=== PATIENT | female | born 1980 | race Caucasian/White ===

== ENCOUNTER 2019-12-21 05:15 | Inpatient (IN) | payer MEDICAID, OTHER ==
[~2019-12-21] VITALS: Ht 154.9 cm; Wt 99.3 kg
[2019-12-21 05:20] VITALS: BP 154/77
--- NOTE | 2019-12-21 05:20 | NUR ---
PT AMBULATED TO BED #6
--- NOTE | 2019-12-21 05:25 | NUR ---
PT 39 Y/O FEMALE BIB SELF FOR C/O UMBILICAL AND RLQ, LLQ, PAIN 9/10 X 2 DAYS. PT AAO X4. ABD IS ROUND, SOFT, ANDD TENDER TO TOUCH. PT STATES SHE HAS HX OF HERNIA AND HAS HAD X 2 OPPERATIONS FOR IT IN THE PAST. PT ALSO HAS HX OF GALLBLADDER REMOVAL X 8 YEARS AGO. PT HAS C/O N/V X 2 DAYS. PT STATES SHE HAS BEEN UNABLE TO SLEEP OR EAT SOLID FOODS X 2 DAYS. PT RESPIRATIONS ARE EVEN AND UNLABORED. SKIN IS WARM AND DRY TO TOUCH. AFEBRILE. PT AT BEDSIDE. BED LOCKED AND IN LOWEST POSITION. MEDHX: HERNIA ALLERGIES: NKA
--- NOTE | 2019-12-21 05:30 | NUR ---
AT [facility].
[2019-12-21] MEDS ORDERED: NACL 0.9% 1,000 ML IV SCH ×2 (05:45→08:27)
[2019-12-21] MEDS ORDERED: MORPHINE SULFATE 4 MG/ML SYR IVP ONE (05:45)
[2019-12-21] MEDS ORDERED: ONDANSETRON 4 MG/2 ML VIAL IVP ONE (05:45)
--- NOTE | 2019-12-21 05:50 | NUR ---
IV PLACED IN R AC 20G. IV SITE IS PATENT. NO SWELLING OR C/O PAIN AT SITE. LABS COLLECTED.
--- NOTE | 2019-12-21 05:51 | NUR ---
IVF OF NS 0.9% 1 L BOLUS RUNNING CONTINOUSLY. IV SITE PATENT. MOPHINE 4MG, ZOFRAN 4 MG, GIVEN FOR 9/10 ABD PAIN AND NAUSEA.
--- NOTE | 2019-12-21 06:00 | NUR ---
CONSENT SIGNED AND GIVEN FOR CT W/ CONTRAST.
[2019-12-21 06:17] LABS: APPEARANCE,URINE CLEAR (CLEAR); BILIRUBIN,URINE NEGATIVE (NEGATIVE); BLOOD, URINE NEGATIVE (NEGATIVE); COLOR,URINE YELLOW (YELLOW); LEUKOCYTE ESTERASE ,URINE NEGATIVE (NEGATIVE); NITRITE, URINE NEGATIVE (NEGATIVE); UGLUCOSE NEGATIVE (NEGATIVE)
[2019-12-21 06:22] LABS: BASOPHILS # (AUTO) 0.1 K/uL (0.00-0.22); BASOPHILS % (AUTO) 0.4 % (0.0-2.0); EOSINOPHILS % (AUTO) 0.1 % (0.0-4.0); HEMATOCRIT 32.6 % (36-48); HEMOGLOBIN 9.9 g/dL (12.0-16.0); LYMPHOCYTES # (AUTO) 1.5 K/uL (2.5-16.5); MEAN CORPUSCULAR HEMOGLOBIN 17 pg (27-31); MEAN CORPUSCULAR HGB CONC 30 g/dL (33-37); MEAN CORPUSCULAR VOLUME 56.9 fL (80-94); MONOCYTES # (AUTO) 1.9 K/uL (0.8-1.0); MONOCYTES % (AUTO) 7.8 % (1.7-9.3); NEUTROPHILS # (AUTO) 21.3 K/uL (1.8-7.7); NEUTROPHILS % (AUTO) 85.7 % (42.2-75.2); PLATELET COUNT (AUTO) 373 K/uL (140-450); RED BLOOD CELL COUNT(AUTO) 5.73 MIL/uL (4.20-5.40)
--- NOTE | 2019-12-21 06:30 | NUR ---
PT RESTING IN BED EYES OPEN. RESPIRATIONS ARE EVEN AND UNLABORED. PT STATES, "MY NAUSEA IS GONE AND THE PAIN IS 4/10. I FEEL SO MUCH BETTER."
[2019-12-21 06:35] LABS: ALBUMIN 3.8 g/dL (3.4-5.0); CARBON DIOXIDE 23.6 mmol/L (21-32); POTASSIUM 3.6 mmol/L (3.5-5.1); TOTAL BILIRUBIN 0.5 mg/dL (0.0-1.0)
[2019-12-21 06:51] LABS: WHITE BLOOD COUNT (AUTO) 24.9 K/uL (4.8-10.8)
--- NOTE | 2019-12-21 06:58 | NUR ---
PT TAKEN TO CT VIA W/C.
--- NOTE | 2019-12-21 07:09 | NUR ---
REPORT GIVEN TO WAYNE LORA. CONTINUATION OF CARE.
--- NOTE | 2019-12-21 07:11 | NUR ---
PT RETURNED FROM CT VIA WC, STEADY GAIT TO MIQUEL
[2019-12-21] MEDS ORDERED: LORazepam 2 MG/ML VIAL IM/IVP PRN (08:30)
[2019-12-21] MEDS ORDERED: HYDROcodone/APAP 5/325 MG 1 TAB TAB PO PRN (08:30)
[2019-12-21] MEDS ORDERED: DOCUSATE SODIUM 100 MG GELCAP PO PRN (08:30)
[2019-12-21] MEDS ORDERED: ONDANSETRON 4 MG/2 ML VIAL IM/IVP PRN (08:30)
[2019-12-21] MEDS ORDERED: ACETAMINOPHEN 325 MG TAB PO PRN (08:30)
[2019-12-21] MEDS ORDERED: ZOLPIDEM 5 MG TAB PO PRN (08:30)
[2019-12-21] MEDS: LACTOBACILLUS RHAMNOSUS GG 1 EACH CAP PO SCH (09:00)
--- NOTE | 2019-12-21 09:01 | NUR ---
patient states she does not take any routine medications
[2019-12-21 09:25] VITALS: BP 140/72
--- NOTE | 2019-12-21 09:25 | NUR ---
RECEIVED REPORT FROM ER. PATIENT ABLE TO AMBULATE TO [facility] BED WITH STEADY GAIT. PATIENT HAS NAUSEA AND VOMITING. ABD PAIN WITHIN TOLERABLE AT THIS TIME. AAOX4, CALM, COOPERATIVE, SKIN COLOR APPROPRIATE TO ETHNICITY, WARM TO TOUCH. SKIN INTACT. IV SITE INTACT, PATENT, ON SALINE LOCK. RESPIRATIONS EVEN, UNLABORED ON ROOM AIR. ORIENTED PATIENT TO ROOM AND CALL LIGHT. REVIEWED PLAN OF CARE WITH PATIENT. PATIENT VERBALIZED UNDERSTANDING. SAFETY MEASURES IN PLACE, CALL LIGHT WITHIN REACH. WILL CONTINUE TO MONITOR.
--- NOTE | 2019-12-21 09:25 | NUR ---
Patient will be admitted to care of DR. KOCH. Admited to TELE. Will go to room 125 B . Belongings list completed. Report to GENO RENEE.
[2019-12-21 11:00] LABS: CHOL/HDL RATIO 4.5 (1-4.5); MAGNESIUM 2.1 mg/dL (1.8-2.4); PHOSPHORUS 1.9 mg/dL (2.5-4.9); THYROID STIMULATING HORMONE 5.54 uIU/mL (0.34-3.74)
[2019-12-21 11:26] LABS: PROTHROMBIN TIME 10.7 secs (10.8-13.4)
[2019-12-21] MEDS ORDERED: HYDROmorphone 1 MG/ML AMP IVP SCH (11:30)
--- NOTE | 2019-12-21 11:49 | NUR ---
OR NURSE AT BEDSIDE TO TAKE PATIENT FOR SURGERY. WILL CONTINUE TO MONITOR WHEN PATIENT RETURNS
[2019-12-21] MEDS ORDERED: fentaNYL 0.05 MG/ML VIAL ONE (11:50)
[2019-12-21] MEDS ORDERED: SUCCINYLCHOLINE CHLORIDE 200 MG/10 ML VIAL IVP ONE (11:50)
[2019-12-21] MEDS ORDERED: PROPOFOL 200 MG/20 ML VIAL IV ONE (11:50)
[2019-12-21] MEDS ORDERED: GLYCOPYRROLATE 0.2 MG/ML VIAL ONE (11:50)
[2019-12-21] MEDS ORDERED: ROCURONIUM 50 MG/5 ML VIAL IV ONE (11:50)
[2019-12-21] MEDS ORDERED: KETOROLAC 30 MG/ML VIAL ONE (11:50)
[2019-12-21] MEDS ORDERED: DESFLURANE 240 ML BTL INH ONE (11:50)
[2019-12-21] MEDS ORDERED: ONDANSETRON 4 MG/2 ML VIAL ONE (11:50)
[2019-12-21] MEDS ORDERED: NEOSTIGMINE 1:1000 10 MG/10 ML VIAL ONE (11:50)
[2019-12-21] MEDS ORDERED: HYDROmorphone PFS 2 MG/ML SYR ONE (11:50)
[2019-12-21] MEDS ORDERED: DEXAMETHASONE 4 MG/ML VIAL ONE (11:50)
[2019-12-21] MEDS ORDERED: ceFAZolin 1,000 MG VIAL ONE (11:58)
[2019-12-21] MEDS ORDERED: metroNIDAZOLE 500 MG/NS PREMIX 100 ML IV ONE (11:58)
[2019-12-21] MEDS ORDERED: NACL 0.9% 1,000 ML IV ONE (12:00)
[2019-12-21] MEDS ORDERED: LIDOCAINE 1% 500 MG/50 ML VIAL ONE (12:17)
[2019-12-21] MEDS ORDERED: BUPIVACAINE-MPF 0.5% 30 ML VIAL INJ ONE (12:17)
[2019-12-21] MEDS ORDERED: ONDANSETRON 4 MG/2 ML VIAL IVP PRN (12:25)
[2019-12-21] MEDS ORDERED: HYDROmorphone 1 MG/ML AMP IVP PRN (12:25)
[2019-12-21] MEDS ORDERED: PIPERACILLIN/TAZOBACTAM 3.375 GM in DEXTROSE 5% 50 ML IV SCH (13:00)
[2019-12-21] MEDS ORDERED: INSULIN LISPRO SLIDING SCALE 100 UNITS/ML VIAL SUBQ PRN (14:10)
[2019-12-21] MEDS ORDERED: DEXTROSE 50% 50 ML SYR IVP PRN (14:10)
--- NOTE | 2019-12-21 14:45 | NUR ---
PATIENT BACK FROM OR AND HAD AN OPEN VENTRAL HERNIA REPAIR. PATIENT REPORTS PAIN, MORPHINE GIVEN AT THIS TIME PER MD ORDERS. OTHER SCHEDULED MEDICATIONS DUE GIVEN. WILL CONTINUE TO MONITOR.
[2019-12-21] MEDS: MORPHINE SULFATE 2 MG/ML SYR IVP PRN ×2 (15:04→20:58)
[2019-12-21] MEDS: PIPERACILLIN/TAZOBACTAM 3.375 GM in DEXTROSE 5% 50 ML IV SCH ×2 (15:05→18:25)
[2019-12-21 16:00] VITALS: BP 120/69
[2019-12-21] MEDS: BLOOD GLUCOSE MONITORING 1 DEV DEV FS SCH ×2 (16:30→21:10)
--- NOTE | 2019-12-21 18:33 | NUR ---
DUE MEDICATIONS GIVEN. PATIENT STABLE. WILL CONTINUE TO MONITOR.
[2019-12-21] MEDS: DEXT 5% /NACL 0.9% 1,000 ML IV SCH (18:35)
--- NOTE | 2019-12-21 18:49 | NUR ---
SCHEDULED MEDICATIONS DUE GIVEN. WILL CONTINUE TO MONITOR.
--- NOTE | 2019-12-21 19:20 | NUR ---
RECEIVED ENDORSEMENT AT BEDSIDE FROM AM SHIFT RN. PATIENT IS AOX4, TALKING WITH HER FAMILY AT BEDSIDE. NO SOB NOTED, RESPIRATION EVEN AND UNLABORED. S/P SURGERY. SURGICAL SITE WRAP WITH ABDOMINAL BINDER. NO BLEEDING NOTED. NO C/O PAIN/DISCOMFORT. NKA. FULL CODE. IV SITE TO RIGHT ANTE CUBITAL GAUGE 20. INTACT AND PATENT. ASSESSMENT DONE. CALL LIGHT WITHIN REACH. WILL CONTINUE TO MONITOR.
[2019-12-21] MEDS ORDERED: SODIUM FERRIC GLUCONATE 125 MG in NACL 0.9% 100 ML IV SCH (19:30)
--- NOTE | 2019-12-21 19:30 | NUR ---
GAVE REPORT TO SOCIOLOGY RESEARCH ASSISTANT NURSE FOR CONTINUITY OF CARE. PATIENT IN STABLE CONDITION
[2019-12-21 20:00] VITALS: BP 132/85
--- NOTE | 2019-12-21 20:58 | NUR ---
PATIENT IS STANDING AND TRYING TO GET BACK TO BED. C/O SEVERE PAIN ON THE ABDOMEN OR SURGICAL SITE. HELPED PATIENT TO GET BACK TO BED SLOWLY. GAVE MORPHINE IVP PRN PER MD ORDERED. NO SOB NOTED. WILL CONTINUE TO MONITOR.
--- NOTE | 2019-12-21 21:00 | NUR ---
BLOOD SUGAR CHECKED 154. PATIENT REFUSED INSULIN 2 UNITS. PER PATIENT SHE'S NOT DIABETIC AND SHE DOESN'T TAKE INSULIN AT HOME. EDUCATE PATIENT. STILL REFUSED. MD AWARE.
--- NOTE | 2019-12-21 21:58 | NUR ---
PATIENT IN BED. STILL WITH C/O PAIN. 05/30. REPOSITIONED. NO SOB NOTED. INFORMED .
[2019-12-21] MEDS: HYDROmorphone 1 MG/ML AMP IVP PRN (22:08)
--- NOTE | 2019-12-21 22:08 | NUR ---
PATIENT STILL C/O PAIN. REPOSITIONED. RELAXATION TECHNIQUE ENCOURAGED. MD ORDERED DILAUDID. ADMINISTERED DILAUDID 1MG IVP FOR SEVERE PAIN. TOLERATED WELL. WILL CONTINUE TO MONITOR. CALL LIGHT WITHIN REACH.
[2019-12-21 22:09] LABS: BARBITURATE, URINE NEG. ng/ml (NEG <=200); BENZODIAZEPINE, URINE NEG. ng/mL (NEG <=200); CANNABINOID, URINE POS. ng/mL (NEG <=50); COCAINE, URINE NEG. ng/mL (NEG <=300); OPIATE, URINE POS. ng/mL (NEG <=2000); PHENCYCLIDINE SCREEN,URINE NEG. ng/mL (NEG <=25)
[2019-12-22] VITALS: BP 145/70
[2019-12-22] MEDS: PIPERACILLIN/TAZOBACTAM 3.375 GM in DEXTROSE 5% 50 ML IV SCH ×4 (00:25→18:20)
--- NOTE | 2019-12-22 02:06 | NUR ---
CHECKED PATIENT. PATIENT SLEEPING RESPIRATION EVEN UNLABORED ON 3L NC O2. NO DISTRESS NOTED. WILL CONTINUE TO MONITOR Addendum: 12/22/19 at 0207 by Cy Connor RN WRONG PATIENT
--- NOTE | 2019-12-22 02:07 | NUR ---
CHECKED PATIENT. PATIENT SLEEPING RESPIRATION EVEN UNLABORED ON ROOM AIR. NO DISTRESS NOTED. WILL CONTINUE TO MONITOR
[2019-12-22] MEDS: HYDROmorphone 1 MG/ML AMP IVP PRN ×4 (02:52→21:20)
[2019-12-22 04:00] VITALS: BP 145/62
[2019-12-22 06:11] LABS: HEMATOCRIT 27.6 % (36-48); HEMOGLOBIN 8.4 g/dL (12.0-16.0); MEAN CORPUSCULAR HEMOGLOBIN 18 pg (27-31); MEAN CORPUSCULAR HGB CONC 30 g/dL (33-37); MEAN CORPUSCULAR VOLUME 58.9 fL (80-94); PLATELET COUNT (AUTO) 294 K/uL (140-450); RED BLOOD CELL COUNT(AUTO) 4.68 MIL/uL (4.20-5.40); WHITE BLOOD COUNT (AUTO) 15.4 K/uL (4.8-10.8)
[2019-12-22 06:19] LABS: ANION GAP 11.2 (8-16); CARBON DIOXIDE 27.4 mmol/L (21-32); CREATININE 0.9 mg/dL (0.6-1.3); POTASSIUM 3.6 mmol/L (3.5-5.1)
[2019-12-22 06:24] LABS: PHOSPHORUS 4.1 mg/dL (2.5-4.9)
[2019-12-22 07:02] LABS: LYMPHOCYTES % (MANUAL) 8 % (20-46); MONOCYTES % (MANUAL) 10 % (5-12)
--- NOTE | 2019-12-22 07:17 | NUR ---
RECEIVED REPORT FROM NIGHT NURSE FOR CONTINUITY OF CARE, PT IS STABLE, NO SIGNS OF DISTRESS NOTED, PT IS AA0X4, INTRODUCE SELF, UPDATE WHITEBOARD, PT HAS R AC 20G, INFUSING NS AT 100ML, PT HAS ABDOMINAL BINDER, CALL LIGHT WITHIN REACH, WILL CONTINUE TO MONITOR.
--- NOTE | 2019-12-22 07:18 | NUR ---
ENDORSEMENT GIVEN AT BEDSIDE TO AM SHIFT RN FOR CONTINUITY OF CARE. NO SOB NOTED. PATIENT IS STABLE.
[2019-12-22 08:00] VITALS: BP 136/73
--- NOTE | 2019-12-22 08:50 | NUR ---
PATIENT HAS BEEN SCREENED AND CATEGORIZED HIGH NUTRITION RISK. PATIENT WILL BE SEEN WITHIN 1-2 DAYS OF ADMISSION. 12/22/19-12/23/[address]
[2019-12-22] MEDS: LACTOBACILLUS RHAMNOSUS GG 1 EACH CAP PO SCH (09:00)
[2019-12-22] MEDS: FERROUS SULFATE 325 MG TABEC PO SCH (09:00)
[2019-12-22] MEDS: ASCORBIC ACID 500 MG TAB PO SCH (09:00)
[2019-12-22] MEDS: LISINOPRIL 5 MG TAB PO SCH (09:01)
--- NOTE | 2019-12-22 09:02 | NUR ---
ADMINISTER DILUADID FOR SEVER PAIN OF 9/10 FROM ABDOMINAL INCISION, PT RESTLESS AND CRYING, PT EDUCATION GIVEN, PT VERBALIZED UNDERSTANDING, PT TOLERATED MEDICATION WELL, PT IS STABLE, CALL LIGHT WITHIN REACH.
--- NOTE | 2019-12-22 11:00 | NUR ---
GAVE REPORT TO NURSEJEFF FOR CONTINUITY OF CARE, PT IS STABLE.
--- NOTE | 2019-12-22 11:01 | NUR ---
RECEIVED REPORT FROM KAYLA PANDEY IN STABLE CONDITION, AAOX4, DENIES PAIN AT THIS TIME, NO DISTRESS NOTED. IV IN PLACE IN R AC 22G PATENT AND ASYMPTOMATIC SALINE LOCKED. RESPIRATIONS EVEN AND UNLABORED ON ROOM AIR. SKIN INTACT. BED IN LOW POSITION. SAFETY MEASURES IN PLACE. CALL LIGHT WITHIN REACH, WILL CONTINUE TO MONITOR.
[2019-12-22] MEDS: DEXT 5% /NACL 0.9% 1,000 ML IV SCH (11:15)
[2019-12-22 12:00] VITALS: BP 136/77
[2019-12-22] MEDS ORDERED: PANTOPRAZOLE 40 MG INJ VIAL IVP SCH (12:00)
--- NOTE | 2019-12-22 12:17 | NUR ---
MEDICATIONS ADMINISTERED PER ORDER. PT TOLERATED WELL, NO DISTRESS NOTED. WILL CONTINUE TO MONITOR.
[2019-12-22 12:20] LABS: FOLIC ACID 16.2 ng/mL (>3.0)
[2019-12-22 16:00] VITALS: BP 126/67
--- NOTE | 2019-12-22 16:09 | NUR ---
12/22/19 RD INITIAL ASSESSMENT COMPLETED PLEASE REFER TO NUTRITION ASSESSMENT UNDER CARE ACTIVITY FOR ESTIMATED NUTRITIONAL NEEDS. 1. CONTINUE NPO DIET MEDICALLY APPROPRIATE 2. IF/WHEN MEDICALLY STABLE, RECOMMEND BRAT DIET TOLERATED. 3. RD TO FOLLOW-UP 2-3 DAYS, HIGH RISK GLORIA RIVERA, RD
--- NOTE | 2019-12-22 16:10 | NUR ---
PRN DILAUDID GIVEN FOR PAIN. WILL REEVALUATE. PT IN STABLE CONDITION
--- NOTE | 2019-12-22 16:30 | NUR ---
TRANSFERRED CARE TO [facility] FOR CONTINUITY OF CARE.
--- NOTE | 2019-12-22 16:32 | NUR ---
RECEIVED BEDSIDE REPORT FROM JEFF LORA FOR CONTINUITY OF CARE. PT IS RESTING ON BED AT THIS TIME. NO SIGNS OF DISTRESS NOTED. BOARD UPDATED. SAFETY MEASURES IN PLACE.
--- NOTE | 2019-12-22 17:59 | NUR ---
PT IS RESTING ON BED. NPO MAINTAINED. NO SIGNS OF DISTRESS NOTED. SAFETY MEASURES IN PLACE. INSTRUCTED PT TO USE THE CALL LIGHT FOR ANY ASSISTANCE AND PT AWARE.
--- NOTE | 2019-12-22 18:20 | NUR ---
ADMINISTERED ZOSYN VIA IVPB PER MD ORDER, MED ED PROVIDED TO PT AND PT SAID OK. PT AWAKE AND TALKING TO VISITOR BY BEDSIDE. NO SIGNS OF DISTRESS NOTED. SAFETY MEASURES IN PLACE.
--- NOTE | 2019-12-22 19:13 | NUR ---
ENDORSED PT AT BEDSIDE TO WEDDING DAY COORDINATOR NURSE SHAYNE FOR CONTINUITY OF CARE. PT IS AWAKE AND TALKING TO VISITOR BY BEDSIDE AT THIS TIME. NO SIGNS OF DISTRESS NOTED. PT IS IN STABLE CONDITION. SAFETY MEASURES IN PLACE.
--- NOTE | 2019-12-22 19:15 | NUR ---
RECEIVED PT IN STABLE CONDITION FROM AM NURSE. AWAKE,ALERT AND ORIENTED X4. MED SURG PT. WITH IVF INFUSING WELL ON THE RT HAND G22. CLEAR AND PATENT. NO C/O ANY PAIN AT THIS TIME. CAN AMBULATE TO THE BATHROOM . AMID ABDOMEN WITH INCISION ,GLUED. NO REDNESS .SWELLING NOTED. WITH ABDOMINAL BINDER. PLAN OF CARE DISCUSSED AND VERBALIZED UNDERSTANDING. FREQ ROUNDS NEEDED. BED ON LOW POSITION, SIDE RAILS UP X2. CALL LIGHT WITHIN EASY REACH. WILL CONTINUE TO MONITOR.
[2019-12-22 20:00] VITALS: BP 136/64
--- NOTE | 2019-12-22 21:20 | NUR ---
C/O POST OP PAIN . MEDICATED ORDERED. WILL CONTINUE TO MONITOR.
--- NOTE | 2019-12-22 22:20 | NUR ---
MADE ROUNDS. PT ASLEEP. NO S/S OF ANY DISCOMFORT/PAIN NOTED.
[2019-12-23] MEDS: PIPERACILLIN/TAZOBACTAM 3.375 GM in DEXTROSE 5% 50 ML IV SCH ×3 (00:13→12:00)
[2019-12-23 00:30] VITALS: BP 120/65
--- NOTE | 2019-12-23 00:30 | NUR ---
VITAL SIGNS STABLE. NO C/O PAIN . WILL CONTINUE TO MONITOR.
--- NOTE | 2019-12-23 02:15 | NUR ---
ASSISTED UP TO THE BATHROOM. VOIDED AND SHE SAID SHE PASSES A LITTLE BIT OF GAS . ENCOURAGED TO AMBULATE MORE . C/O PAIN . WILL MEDICATE FOR PAIN .
[2019-12-23] MEDS: HYDROmorphone 1 MG/ML AMP IVP PRN (02:19)
[2019-12-23] MEDS: DEXT 5% /NACL 0.9% 1,000 ML IV SCH ×2 (03:55→05:43)
--- NOTE | 2019-12-23 04:00 | NUR ---
PT ASLEEP. NO S/S OF ANY PAIN NOTED.
[2019-12-23 06:59] LABS: BASOPHILS # (AUTO) 0.2 K/uL (0.00-0.22); BASOPHILS % (AUTO) 1.1 % (0.0-2.0); EOSINOPHILS # (AUTO) 0.2 K/uL (0-0.4); EOSINOPHILS % (AUTO) 1.3 % (0.0-4.0); HEMATOCRIT 24.9 % (36-48); HEMOGLOBIN 7.6 g/dL (12.0-16.0); LYMPHOCYTES # (AUTO) 1.6 K/uL (2.5-16.5); LYMPHOCYTES % (AUTO) 11.7 % (20.5-51.1); MEAN CORPUSCULAR HEMOGLOBIN 18 pg (27-31); MEAN CORPUSCULAR HGB CONC 30 g/dL (33-37); MEAN CORPUSCULAR VOLUME 59.8 fL (80-94); MONOCYTES # (AUTO) 1.5 K/uL (0.8-1.0); MONOCYTES % (AUTO) 11.3 % (1.7-9.3); NEUTROPHILS % (AUTO) 74.6 % (42.2-75.2); PLATELET COUNT (AUTO) 258 K/uL (140-450); RED BLOOD CELL COUNT(AUTO) 4.15 MIL/uL (4.20-5.40); RED CELL DISTRIBUTION WIDTH 19.4 % (11.6-13.7); WHITE BLOOD COUNT (AUTO) 13.4 K/uL (4.8-10.8)
[2019-12-23 07:00] LABS: ANION GAP 8.4 (8-16); CARBON DIOXIDE 26.8 mmol/L (21-32); CREATININE 0.6 mg/dL (0.6-1.3); POTASSIUM 3.2 mmol/L (3.5-5.1)
[2019-12-23 07:07] LABS: PHOSPHORUS 2.6 mg/dL (2.5-4.9)
[2019-12-23] MEDS ORDERED: HYDR-5122 PO (07:16)
--- NOTE | 2019-12-23 07:26 | NUR ---
RECEIVED PT IN STABLE CONDITION FROM COMPOSER TEACHING ARTIST NURSE. PT IS AAOX4. MED SURG PT. WITH IVF INFUSING WELL ON THE RT HAND G22. CLEAR AND PATENT. NO C/O ANY PAIN AT THIS TIME. CAN AMBULATE TO THE BATHROOM . S/P EX LAP WITH INCISION ON ADB ,GLUED. NO REDNESS .SWELLING NOTED. WITH ABDOMINAL BINDER. PLAN OF CARE DISCUSSED AND VERBALIZED UNDERSTANDING. BOARD UPDATED. BED ON LOW POSITION, SIDE RAILS UP. CALL LIGHT WITHIN EASY REACH. WILL MONITOR PT CLOSELY THROUGHOUT SHIFT.
--- NOTE | 2019-12-23 07:35 | NUR ---
ENDORSED PT IN STABLE CONDITION TO AM NURSE.
[2019-12-23 08:00] VITALS: BP 133/75
[2019-12-23] MEDS: LACTOBACILLUS RHAMNOSUS GG 1 EACH CAP PO SCH (08:37)
[2019-12-23] MEDS: LISINOPRIL 5 MG TAB PO SCH (08:39)
[2019-12-23] MEDS: ASCORBIC ACID 500 MG TAB PO SCH (08:39)
[2019-12-23] MEDS: FERROUS SULFATE 325 MG TABEC PO SCH (08:39)
[2019-12-23] MEDS ORDERED: PANTOPRAZOLE 40 MG TABEC PO SCH (09:00)
--- NOTE | 2019-12-23 09:12 | NUR ---
ADMINISTERED MORNING MEDS TO PT. PT TOLERATED WELL. ALL NEEDS MET.
[2019-12-23] MEDS ORDERED: DOCU-474 PO ×2 (10:01→10:04)
[2019-12-23] MEDS ORDERED: FERR325E14 PO (10:06)
[2019-12-23] MEDS ORDERED: ASCO500T45 PO (10:06)
[2019-12-23] MEDS ORDERED: LEVO500T2 PO (10:10)
[2019-12-23] MEDS ORDERED: LACT10CA1 PO (10:11)
--- NOTE | 2019-12-23 10:49 | NUR ---
SURGICAL WOUND ASSESSMENT DONE TO MID ABDOMINAL S/P REPAIR OF INCARCERATED VENTRAL INCISIONAL HERNIA ON SATURDAY. WOUND SITE 11 CM IN LENGTH, DRY AND CLEAN WITH DERMABOND, NO S/S DEHISCENCE. KURT-WOUND SKIN DRY AND INTACT. FAMILY MEMBER AT BED SIDE, WOUND CARE TEACHING DONE . PT. VERBALIZES UNDERSTANDING. PT. WILL FOLLOW UP OUT PATIENT WITH SURGEON. ABDOMINAL BINDER IN PLACE, INSTRUCT PT. NO HEAVY LIFTING. KEEP WOUND SITE DRY AND CLEAN AT ALL TIMES.
--- NOTE | 2019-12-23 11:45 | NUR ---
PT RESTING IN BED. ALL NEEDS MET. WILL CONTINUE TO ROUND ON PT.
--- NOTE | 2019-12-23 13:48 | NUR ---
PT RESTING IN BED AWAITING DC. ALL NEEDS MET.
--- NOTE | 2019-12-23 13:52 | NUR ---
DISCHARGE PLANNING: THIS IS A 39 YEAR OLD FEMALE PATIENT FROM HOME, WHO CAME IN DUE TO ABDOMINAL PAIN AND VOMITING. PAST MEDICAL AND SURGICAL HISTORY INCLUDE VENTRAL HERNIA, CHOLECYSTECTOMY AND HERNIA REPAIR X2. INITIAL DIAGNOSIS OF SMALL BOWEL OBSTRUCTION. WBC 13.4, H/H 7.6/24.9, NA/K 137/3.2, BUN/CREA 13/0.6. ON ZOSYN. SURGICAL CONSULT IN PLACE. S/P REPAIR OF INCARCERATED VENTRAL INCISIONAL HERNIA. FOR POSSIBLE DC TODAY.
--- NOTE | 2019-12-23 14:55 | NUR ---
PT DISCHARGED HOME FOR SELF CARE. DISCUSSED DISCHARGE WITH PT AND PT VERBALIZED UNDERSTANDING. DC WOUND PICTURE TAKEN AND DOCUMENTED IN CHART. IV REMOVED WITH TIP INTACT. ALL PERSONAL BELONGINGS TAKEN HOME WITH PT. [employer] PRESCRIPTION HANDED TO PT. INSTRUCTED PT ON WOUND DRESSING CHANGE. PT VERBALIZED UNDERSTANDING. PT LEFT IN STABLE CONDITION ACCOMPANIED BY HER BOYFRIEND.
[2019-12-23] MEDS ORDERED: POTASSIUM CHLORIDE 10 MEQ TABER PO SCH (15:00)
[2019-12-24] MEDS ORDERED: POTASSIUM CHLORIDE 10 MEQ TABER PO SCH (09:00)
== END 2019-12-23 14:55 | disposition home or self-care (01) | DRG 853 ==
LOC: MED 05:15 → MMU 08:27
PROVIDERS: ADMIT General Practice; ATTEND General Practice
PROC: 0D9670Z Drainage of Stomach with Drainage Device, Via Natural or Artificial Opening (ICD-10-PCS; 2019-12-21)
PROC: 0WUF0JZ Supplement Abdominal Wall with Synthetic Substitute, Open Approach (ICD-10-PCS; principal; 2019-12-21 10:45)
DX: A41.9 Sepsis, unspecified organism (principal); N17.0 Acute kidney failure with tubular necrosis; K43.0 Incisional hernia with obstruction, without gangrene; E83.39 Other disorders of phosphorus metabolism; E78.5 Hyperlipidemia, unspecified; I10 Essential (primary) hypertension; E03.9 Hypothyroidism, unspecified; D50.9 Iron deficiency anemia, unspecified; F12.10 Cannabis abuse, uncomplicated; F11.10 Opioid abuse, uncomplicated; E87.6 Hypokalemia; K21.9 Gastro-esophageal reflux disease without esophagitis; Z90.49 Acquired absence of other specified parts of digestive tract
CPT/HCPCS: 36415; 71045; 80048; 80053; 80305; 81003; 82607; 82728; 82746; 82948; 83036; 83540; 83605; 83690; 83735; 84100; 84134; 84443; 84703; 85025; 85045; 85610; 85730; 86886; 86900; 86901; 87040; 87081; 87086; 96361; 96374; 96375; 99285; C9113; J0330; J0690; J1100; J1170; J1815; J1885; J2001; J2270; J2405; J2543; J2704; J2710; J2916; J3010; J3490; J7030; J7042; J7060; Q0092; Q9967